=== PATIENT | female | born 1985 | race Caucasian/White ===

== ENCOUNTER → 2021-04-22 | Outpatient (CLI) | payer OTHER ==
[~2021-04-22] MED LIST: COLACE 100MG C100 MG PO; FERROUS SULFAT325 M2 PO; IBUPROFEN600 MG PO; LEVOTHYROXINE100 MCG PO; NAPROSYN500 MG PO; SYNTHROID150 MCG PO
[2021-04-22 13:34] LABS: BUN/CREATININE RATIO 11 (0-10)
== END ==
LOC: LAB 11:39
PROVIDERS: Emergency Medicine
DX: E20.9 Hypoparathyroidism, unspecified (principal); E89.0 Postprocedural hypothyroidism; Z79.899 Other long term (current) drug therapy
CPT/HCPCS: 36415; 80053; 84439; 84443

== ENCOUNTER → 2021-05-16 | Outpatient (CLI) | payer OTHER ==
[2021-05-16 17:16] LABS: BUN/CREATININE RATIO 18 (0-10)
== END ==
LOC: LAB 16:28
PROVIDERS: Emergency Medicine
DX: E03.9 Hypothyroidism, unspecified (principal); E20.9 Hypoparathyroidism, unspecified
CPT/HCPCS: 36415; 80053

== ENCOUNTER → 2021-06-13 | Outpatient (CLI) | payer OTHER ==
[2021-06-13 16:40] LABS: BUN/CREATININE RATIO 14 (0-10)
== END ==
LOC: LAB 15:44
PROVIDERS: Emergency Medicine
DX: E20.9 Hypoparathyroidism, unspecified (principal)
CPT/HCPCS: 36415; 80053

== ENCOUNTER → 2021-08-22 | Outpatient (CLI) | payer OTHER ==
[2021-08-22 12:45] LABS: BUN/CREATININE RATIO 11 (0-10)
== END ==
LOC: LAB 11:56
PROVIDERS: Emergency Medicine
DX: E03.9 Hypothyroidism, unspecified (principal); E20.9 Hypoparathyroidism, unspecified; Z79.899 Other long term (current) drug therapy
CPT/HCPCS: 36415; 80053; 84439; 84443

== ENCOUNTER → 2021-10-26 | Outpatient (CLI) | payer OTHER ==
[2021-10-26 16:06] LABS: BUN/CREATININE RATIO 11 (0-10)
== END ==
LOC: LAB 12:51
PROVIDERS: Emergency Medicine
DX: E20.9 Hypoparathyroidism, unspecified (principal); E03.9 Hypothyroidism, unspecified
CPT/HCPCS: 36415; 80053; 84439; 84443

== ENCOUNTER 2022-02-12 01:30 | Emergency (ER) | payer OTHER ==
[2022-02-12 02:54] LABS: HEMOGLOBIN 11.3 gm/dl (12.3-15.3); RED BLOOD COUNT 4.09 M/UL (4.00-5.10); WHITE BLOOD COUNT 9.4 K/UL (4.5-11.0)
[2022-02-12 03:17] LABS: BUN/CREATININE RATIO 9 (0-10)
[2022-02-12] MEDS ORDERED: PERCOCET 5/325 T1 EA PO (04:26)
[2022-02-12] MEDS ORDERED: PYRIDIUM200 MG PO (04:26)
[2022-02-12] MEDS ORDERED: OMNICEF 300 MG300 MG PO (04:26)
== END 2022-02-12 04:58 | disposition home or self-care (01) ==
LOC: ER1 01:30
PROVIDERS: Family Medicine
DX: N83.201 Unspecified ovarian cyst, right side (principal); N39.0 Urinary tract infection, site not specified
CPT/HCPCS: 80053; 81001; 83690; 85025; 96374; 96375; 96376; 99284; J0696; J2270; J2405; Q9967

== ENCOUNTER → 2022-06-12 | Outpatient (CLI) | payer OTHER ==
[~2022-06-12] MED LIST changes: +OMNICEF 300 MG300 MG PO; +PERCOCET 5/325 T1 EA PO; +PYRIDIUM200 MG PO
[2022-06-12 13:50] LABS: BUN/CREATININE RATIO 12 (0-10)
== END ==
LOC: LAB 12:32
PROVIDERS: Emergency Medicine
DX: E89.0 Postprocedural hypothyroidism (principal); E20.9 Hypoparathyroidism, unspecified; Z79.899 Other long term (current) drug therapy
CPT/HCPCS: 36415; 80053; 84439; 84443